=== PATIENT | male | born 1985 | race Caucasian/White ===

== ENCOUNTER 2016-05-14 06:16 | Emergency (ER) | payer OTHER ==
[~2016-05-14] VITALS: Ht 185.4 cm; Wt 90.7 kg
[~2016-05-14 06:16] MED LIST: BACTRIM DS 8001 TA1 PO; CELEXA20 MG PO; CEPHALEXIN500 M1 PO; CIPRO500 MG PO; CYCLOBENZAPRINE10 MG PO; FLAGYL500 MG PO; HYDROCODONE BIT1 T11 PO; LOMOTIL 0.025 M1 TA1 PO; ROBITUSSIN AC 10 MG/ PO; VOLTAREN50 M1 PO; ZANAFLEX4 M2 PO; ZITHROMAX250 MG PO; ZOFRAN ODT4 MG SL
[2016-05-14 06:54] LABS: BASO % 0.6 % (0.0-1.0); EOS # 0.2 10*3/uL (0.0-0.4); EOS % 2.4 % (1.0-4.0); HEMATOCRIT 47.6 % (42.0-52.0); HEMOGLOBIN 16.3 g/dl (14.0-18.0); LYMPH # 2.2 10*3/uL (1.3-4.4); LYMPH % 35.2 % (27.0-41.0); MEAN CELL VOLUME 92.1 fl (80.0-94.0); MEAN CORPUSCULAR HGB 31.5 pg (27.0-31.0); MEAN CORPUSCULAR HGB CONC 34.2 g/dl (33.0-37.0); MEAN PLATELET VOLUME 10.2 fl (9.6-12.3); MONO # 0.4 10*3/uL (0.1-1.0); NEUT # 3.6 10*3/uL (2.3-7.9); NEUT % 55.6 % (47.0-73.0); PLATELET COUNT AUTOMATED 186 10*3/uL (130-400); RED BLOOD COUNT 5.17 10*6/uL (4.50-5.90); RED CELL DISTRI WIDTH 12.9 % (0-14.5); WHITE BLOOD COUNT 6.4 10*3/uL (4.8-10.8)
[2016-05-14 07:07] LABS: BUN 11 mg/dl (7-24); CARBON DIOXIDE 26 mmol/L (21-32); CHLORIDE 107 mmol/L (98-107); EST GLOM FILT AFRICAN AMERICAN > 60 ml/min; GLUCOSE 91 mg/dL (65-99); POTASSIUM 4.1 mmol/L (3.5-5.1); SODIUM 142 mmol/L (136-145)
[2016-05-19] MEDS ORDERED: FLONASE ALLERG9.9 ML NAS (21:07)
[2016-05-19] MEDS ORDERED: CLARITIN10 MG PO (21:07)
[2016-05-19] MEDS ORDERED: PREDNISONE10 MG PO (21:07)
[2016-05-19] MEDS ORDERED: ROBITUSSIN AC 110 ML PO (21:07)
== END 2016-05-14 08:24 | disposition left against medical advice (07) ==
LOC: ED 06:16
PROVIDERS: Emergency Medicine Emergency Medical Services
DX: R07.9 Chest pain, unspecified (principal); I25.2 Old myocardial infarction; G89.29 Other chronic pain; M54.9 Dorsalgia, unspecified

== ENCOUNTER 2021-02-02 21:32 | Emergency (ER) | payer OTHER ==
[~2021-02-02] VITALS: Ht 185.4 cm; Wt 111.1 kg
[~2021-02-02 21:32] MED LIST changes: +CLARITIN10 MG PO; +FLONASE ALLERG9.9 ML NAS; +PREDNISONE10 MG PO; +ROBITUSSIN AC 110 ML PO
== END 2021-02-03 00:03 | disposition home or self-care (01) ==
LOC: ED 21:32
DX: F41.9 Anxiety disorder, unspecified (principal); R00.2 Palpitations